=== PATIENT | male | born 2000 | race Caucasian/White ===

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

== ENCOUNTER 2021-09-30 20:58 | Emergency (ER) | payer OTHER, SELFPAY ==
--- NOTE | ~2021-09-30 | XR_ITS ---
EXAMINATION: XR chest 2V DATE: 09/30/2021 21:54 INDICATION: Cough, chest tightness TECHNIQUE: PA and lateral views of the chest are obtained. COMPARISON: None available FINDINGS: The lungs are free of acute opacities. There is no pleural effusion or pneumothorax. The ca rdiomediastinal silhouette is normal. The visualized bones and soft tissues are unremarkable. IMPRESSION: 1. No acute cardiopulmonary abnormality. Reviewed, dictated and finalized at location F.
[2021-09-30 21:09] VITALS: BP 140/82; PULSE 93; RESP 18; TEMP 37; O2SAT 99
[2021-09-30 21:17] VITALS: BP 146/65; PULSE 89; RESP 18; O2SAT 100
--- NOTE | 2021-09-30 21:44 | ECG_ITS ---
Measurements Intervals [place] Rate: 77 P: 75 [place]: 155 QRS: 85 QRSD: 84 T: 59 QT: 383 QTc: 436 Interpretive Statements SINUS RHYTHM NORMAL ECG NO PREVIOUS ECG AVAILABLE FOR COMPARISON Electronically Signed On 10-01-2021 15:07:03 CDT by Christian Pablo M.D.
--- NOTE | 2021-09-30 21:45 | ED.GENADULT ---
HPI - General Adult General Chief complaint: Recheck/Abnormal Lab/Rx Stated complaint: HTN Time Seen by Provider: 09/30/21 21:43 Source: patient Mode of arrival: ambulatory Limitations: no limitations History of Present Illness HPI narrative: Patient is a 21-year-old male complaining of anxiety , elevated blood pressure and palpitations that started 1 hour prior to arrival. Patient states that he has been taking multivitamins 3 times a day, caffeine pills, and preworkout drink. Patient denies any chest pain, shortness of breath, abdominal pain, nausea, vomiting, diaphoresis, fever or chills. Patient states that he is feeling better and currently has no symptoms at this time. Related Data Home Medications Medication Instructions Recorded Confirmed No Home Medications 09/30/21 09/30/21 Allergies Allergy/AdvReac Type Severity Reaction Status Date / Time No Known Allergies Allergy Verified 09/30/21 21:19 Review of Systems Review of Systems: All systems reviewed & are unremarkable except as noted in HPI and below Constitutional: Constitutional: Denies body ache(s), Denies chills, Denies excessive sweating, Denies fatigue, Denies fever(s), Denies headache(s), Denies lethargy, Denies malaise, Denies weakness and Denies weight loss Eyes: Eyes: Denies blurry vision, Denies change in vision and Denies loss of vision ENT: Denies dizziness, Denies ear discharge, Denies headache(s), Denies lip swelling, Denies epistaxis, Denies nasal congestion, Denies neck pain, Denies throat swelling and Denies tongue swelling Cardiovascular: Cardiovascular: Denies chest pain, Denies chest pain at rest, Denies chest pain with activity, Denies diaphoresis, Denies rapid heart rate, Denies edema, Denies irregular heart rhythm, Denies lightheadedness, Denies dyspnea and Denies dyspnea on exertion Respiratory: Respiratory: Denies chest congestion, Denies cough, Denies hemoptysis, Denies dyspnea and Denies dyspnea on exertion Gastrointestinal: Gastrointestinal: Denies abdominal pain, Denies melena, Denies hematochezia, Denies diarrhea, Denies nausea, Denies vomiting and Denies hematemesis Musculoskeletal: Musculoskeletal: Denies abnormal gait, Denies deformity, Denies joint swelling, Denies limited range of motion, Denies neck pain and Denies numbness Neurologic: Denies Abnormal speech present, Denies abnormal gait, Denies confusion, Denies dizziness, Denies headache(s), Denies focal weakness, Denies loss of vision, Denies numbness, Denies Other visual disturbances, Denies Sensory deficit (Neuro) and Denies weakness Psychiatric: Psychiatric: Denies confusion, Denies depression, Denies auditory hallucinations, Denies homicidal ideation and Denies suicidal ideation Endocrine: Endocrine: Denies cold intolerance, Denies excessive sweating, Denies fatigue, Denies heat intolerance and Denies palpitations Hematologic/Lymphatic: Hematologic/Lymphatic: Denies easy bleeding and Denies easy bruising Allergic/Immunologic: Allergic/Immunologic: Denies lip swelling, Denies throat swelling and Denies tongue swelling PMFSH Past Medical History Medical History Acromioclavicular joint separation, type 2 (~04/2019) ADD (attention deficit disorder) Family history of colon cancer No active medical problems Family History Family History Mother Carcinoma of colon Father Heart disease History of stroke Social History Social History Smoking status: Never smoker Alcohol intake: never Drinks per week: 2 Substance use: current Substance use type: marijuana Gender identity (if verbalized by the patient): Male Exam Const: General: cooperative, healthy appearing, comfortable, no acute distress, well developed, alert and awake; No confusion Orientation/consciousness: oriented to person, rick
[2021-09-30 22:28] VITALS: BP 140/73; PULSE 76; RESP 16; O2SAT 98
[2021-09-30 22:39] LABS: Basophils Percent Auto 0.4 % (0.2-1.2); Eosinophils Percent Auto 0.3 % (0-4.4); Hematocrit 40.1 % (42.0-52.0); Hemoglobin 14.3 g/dL (14.0-18.0); Immature Granulocyte Absolute 0.02 K/mm3 (0.00-0.031); Immature Granulocyte Percent A 0.3 % (0-0.5); Lymphocytes Absolute Auto 1.17 K/mm3 (0.9-3.2); Lymphocytes Percent Auto 14.8 % (18.3-44.2); Mean Corpuscular HGB Conc 35.7 g/dl (32-36); Mean Corpuscular Hemoglobin 31.4 pg (26-34); Mean Corpuscular Volume 88.1 fl (80-100); Mean Platelet Volume 9.4 fl (7.4-10.4); Monocytes Absolute Auto 0.4 K/mm3 (0.1-0.6); Monocytes Percent Auto 4.9 % (2.6-8.5); Neutrophils Absolute Auto 6.3 K/mm3 (1.3-6.7); Neutrophils Percent Auto 79.3 % (45.5-73.1); Platelet Count Result 217 k/mm3 (150-375); Red Blood Count 4.55 M/mm3 (4.6-6.20); Red Cell Distribution Width 12.6 % (11.5-14.5); White Blood Count 7.9 K/mm3 (4.5-10.0)
[2021-09-30 22:52] LABS: Anion Gap 9 mmol/L (8-16); Blood Urea Nitrogen 22 mg/dL (9-20); Calcium 8.9 mg/dL (8.4-10.2); Carbon Dioxide 24 mmol/L (22-30); Chloride 106 mmol/L (98-107); Estimated CRCL calculation 95 ml/min; Estimated Glomerular Filt Rate > 60; Glucose 127 mg/dL (65-110); Potassium 3.7 mmol/L (3.4-5.0); Sodium 139 mmol/L (137-145)
[2021-09-30 23:04] LABS: Troponin I < 0.012 ng/mL (0.000-0.034)
[2021-09-30 23:30] VITALS: BP 131/69; PULSE 73; RESP 16; O2SAT 99
[2021-10-01 00:20] VITALS: BP 122/63; PULSE 73; RESP 18; O2SAT 99
== END 2021-10-01 00:20 | disposition home or self-care (01) ==
PROVIDERS: Emergency Provider Emergency Medicine; PCP Family Medicine
DX: T43.611A Poisoning by caffeine, accidental (unintentional), initial encounter (principal)
CPT/HCPCS: 36415; 71046; 80048; 84484; 85025; 93005; 99284

== ENCOUNTER 2023-05-08 17:05 | Emergency (ER) | payer OTHER, SELFPAY ==
[2023-05-08 17:06] VITALS: BP 144/94; PULSE 116; RESP 22; TEMP 36.8; O2SAT 100
--- NOTE | 2023-05-08 17:10 | ECG_ITS ---
Measurements Intervals [place] Rate: 112 P: 81 [place]: 129 QRS: 85 QRSD: 81 T: 46 QT: 299 QTc: 408 Interpretive Statements SINUS TACHYCARDIA POSSIBLE LEFT ATRIAL ENLARGEMENT DELAYED PRECORDIAL R/S TRANSITION NONSPECIFIC ST & T-WAVE ABNORMALITY- ANTEROLATERAL LEADS BASELINE ARTIFACT- II, III, AVR, AVL, AVF, V4 ABNORMAL ECG COMPARED TO ECG 09/30/2021 22:42:42 [address]ARDIA NOW PRESENT ST-T WAVE ABNORMALITY NOW PRESENT Electronically Signed On 05-08-2023 19:16:47 FINANCIAL ANALYST INTERN by Maxwell Watson D.O.
[2023-05-08 19:05] VITALS: BP 130/77; PULSE 90; RESP 14; TEMP 36.9; O2SAT 99
[2023-05-08 22:10] VITALS: PULSE 75
[2023-05-08 22:13] VITALS: BP 139/76; PULSE 89; RESP 16; TEMP 36.6; O2SAT 100; O2SAT 97
[2023-05-09 00:28] VITALS: BP 105/71; PULSE 75; RESP 13; O2SAT 97
[2023-05-09 01:35] LABS: Basophils Percent Auto 0.5 % (0.2-1.2); Eosinophils Absolute Auto 0.1 K/mm3 (0-0.3); Eosinophils Percent Auto 0.7 % (0-4.4); Hematocrit 44.8 % (42.0-52.0); Hemoglobin 15.5 g/dL (14.0-18.0); Immature Granulocyte Absolute 0.03 K/mm3 (0.00-0.031); Immature Granulocyte Percent A 0.4 % (0-0.5); Lymphocytes Absolute Auto 1.85 K/mm3 (0.9-3.2); Lymphocytes Percent Auto 21.8 % (18.3-44.2); Mean Corpuscular HGB Conc 34.6 g/dl (32-36); Mean Corpuscular Hemoglobin 29.8 pg (26-34); Mean Platelet Volume 9.6 fl (7.4-10.4); Monocytes Absolute Auto 0.5 K/mm3 (0.1-0.6); Monocytes Percent Auto 5.8 % (2.6-8.5); Neutrophils Percent Auto 70.8 % (45.5-73.1); Platelet Count Result 230 k/mm3 (150-375); Red Blood Count 5.21 M/mm3 (4.6-6.20); Red Cell Distribution Width 12.2 % (11.5-14.5); White Blood Count 8.5 K/mm3 (4.5-10.0)
[2023-05-09 01:45] LABS: Alanine Aminotransferase 16 U/L (6-50); Albumin Level 4.9 g/dL (3.5-5.1); Alkaline Phosphatase 61 U/L (38-126); Anion Gap 13 mmol/L (8-16); Aspartate Amino Transferase 28 U/L (17-59); Bilirubin,Total 0.9 mg/dL (0.2-1.3); Blood Urea Nitrogen 15 mg/dL (9-20); Carbon Dioxide 24 mmol/L (22-30); Chloride 103 mmol/L (98-107); Estimated CRCL calculation 94 ml/min; Estimated Glomerular Filt Rate > 60; Glucose 98 mg/dL (65-110); Magnesium 1.8 mg/dL (1.6-2.3); Potassium 3.7 mmol/L (3.4-5.0); Sodium 140 mmol/L (137-145)
[2023-05-09 01:54] LABS: Troponin I < 0.012 ng/mL (0.000-0.034)
[2023-05-09 02:06] VITALS: BP 107/62; PULSE 86; RESP 27; O2SAT 96
--- NOTE | 2023-05-09 02:40 | ED.GENADULT ---
HPI - General Adult General Chief complaint: Unspecified Stated complaint: chest tightness/tingly fingers/dry mouth Time Seen by Provider: 05/09/23 00:13 Source: patient Mode of arrival: ambulatory Limitations: no limitations History of Present Illness HPI narrative: patient is a 22-year-old male who presents to the ED with chest pressure. Patient reports having intermittent episodes of chest pressure and anxiety over the last couple of months. He states symptoms began as a panic feeling, sometimes occurs out of nowhere. He will then developed a pressure / squeezing in his chest, which makes his anxiety worse. He also reports having intermittent tingling in his fingers with the episodes and feeling short of breath. He states if he rests or takes a nap, symptoms will improve. He denies any symptoms currently. He states he has seen his primary care doctor about this and diagnosed with anxiety. He was prescribed buspirone, but states he did not like the way this made him feel. He is not currently seeing a psychiatrist. Denies SI or HI. Related Data Home Medications Medication Instructions Recorded Confirmed No Home Medications 05/02/23 05/02/23 Allergies Allergy/AdvReac Type Severity Reaction Status Date / Time No Known Allergies Allergy Verified 05/02/23 13:35 Review of Systems Review of Systems: CONSTITUTIONAL: Denies fever, chills, or sweats. ENT: Denies rhinorrhea, congestion, sore throat. CARDIOVASCULAR: See HPI. RESPIRATORY: See HPI. GASTROINTESTINAL: Denies abdominal pain, nausea, vomiting, or diarrhea. GENITOURINARY: Denies dysuria or hematuria. SKIN: Denies rash or itching. MUSCULOSKELETAL: Denies back pain, joint pain, or myalgia. NEUROLOGIC: Denies headache, numbness, or weakness. PSYCHIATRIC: See HPI. All systems reviewed & are unremarkable except as noted in HPI and below PMFSH Past Medical History Medical History Acromioclavicular joint separation, type 2 (~04/2019) ADD (attention deficit disorder) Family history of colon cancer No active medical problems Family History Family History Mother Carcinoma of colon Father Heart disease History of stroke Social History Social History Smoking status: Never smoker Alcohol intake: current Drinks per week: 2 Substance use: current Substance use type: marijuana Living arrangements: with family Occupation/Education: occupation Gender identity (if verbalized by the patient): Male Exam Narrative: GENERAL: Well appearing, well-nourished, non-toxic, in no acute distress. HEAD: Normocephalic, atraumatic. NECK: Supple. No adenopathy, no masses. RESPIRATORY: Airway patent, respirations nonlabored. Clear to auscultation bilaterally, no rales, rhonchi, wheezing. CARDIOVASCULAR: Regular rate and rhythm without murmurs, rubs, or gallops. Radial pulses 2+ and equal bilaterally. MUSCULOSKELETAL: Moves all extremities. Strength/ROM intact without gross deformities. SKIN: Warm, dry, normal color. No rashes. NEURO: A&O X3. Speech clear. Cranial nerves II-XII grossly intact. Steady gait. No ataxic movements. PSYCHIATRIC: Mildly anxious. Normal interaction. Course Vital Signs Vital signs: Vital Signs Temperature 98.3 F 05/08/23 17:06 Pulse Rate 116 H 05/08/23 17:06 Respiratory Rate 22 H 05/08/23 17:06 Blood Pressure 144/94 H 05/08/23 17:06 Pulse Oximetry 100 05/08/23 17:06 Oxygen Delivery Room Air 05/08/23 17:06 Temperature 97.8 F 05/08/23 22:13 Pulse Rate 86 05/09/23 02:06 Respiratory Rate 27 H 05/09/23 02:06 Blood Pressure 107/62 05/09/23 02:06 Pulse Oximetry 96 05/09/23 02:06 Oxygen Delivery Room Air 05/08/23 22:13 Medical Decision Making MDM Narrative Medical decision making narrative:
[2023-05-09 02:51] VITALS: BP 103/79; PULSE 88; RESP 23; O2SAT 97
== END 2023-05-09 02:51 | disposition home or self-care (01) ==
PROVIDERS: Emergency Provider Physician Assistant; PCP Family Medicine
DX: R07.89 Other chest pain (principal); F41.9 Anxiety disorder, unspecified; R00.0 Tachycardia, unspecified; R94.31 Abnormal electrocardiogram [ECG] [EKG]
CPT/HCPCS: 36415; 80053; 83735; 84443; 84484; 85025; 93005; 99284